=== PATIENT | female | born 1970 | race Two or more races ===

== ENCOUNTER 2017-01-09 19:10 | Emergency (ER) | payer OTHER ==
[~2017-01-09] VITALS: Ht 170.2 cm; Wt 70.3 kg
[2017-01-09] MEDS ORDERED: ASPIRIN 325 MG TABLET PO ONE (20:00)
[2017-01-09 20:01] LABS: BASOPHILS % (AUTO) 0.6 % (0.0-2.0); RED BLOOD CELL COUNT(AUTO) 3.92 MIL/uL (4.0-5.2)
[2017-01-09 20:05] LABS: EOSINOPHILS # (AUTO) 0.1 /CMM (0.0-0.7); EOSINOPHILS % (AUTO) 1.4 % (0.0-6.0); HEMATOCRIT 36 % (33-45); HEMOGLOBIN 12.3 g/dL (11.5-14.8); LYMPHOCYTES % (AUTO) 27.8 % (20.0-44.0); MEAN CORPUSCULAR HEMOGLOBIN 31 PG (26.0-33.0); MEAN CORPUSCULAR HGB CONC 35 g/dl (31.0-36.0); MEAN CORPUSCULAR VOLUME 91 fL (82-100); MONOCYTES # (AUTO) 0.4 /CMM (0.1-1.30); MONOCYTES % (AUTO) 5.6 % (2.0-12.0); NEUTROPHILS # (AUTO) 4.8 /CMM (1.8-8.9); NEUTROPHILS % (AUTO) 64.6 % (43.0-81.0); PLATELET COUNT (AUTO) 161 /CMM (150-450); RDW COEFFICIENT OF VARIATION 12.3 (11.5-15.0); WHITE BLOOD COUNT (AUTO) 7.4 K/uL (4.3-11.0)
[2017-01-09 20:15] LABS: CALCIUM, SERUM 8.7 mg/dL (8.5-10.1); CARBON DIOXIDE 29 mmol/L (21-32); CHLORIDE 105 mmol/L (98-107); CREATININE 0.6 mg/dL (0.6-1.3); GFR 108 mL/min (>60); GLUCOSE 93 mg/dL (74-106); POTASSIUM 3.6 mmol/L (3.5-5.1); SODIUM SERUM 139 mmol/L (136-145); UREA NITROGEN, BLOOD 17 mg/dL (7-18)
[2017-01-09 20:18] LABS: INR 1.01 (0.87-1.13); PROTHROMBIN TIME 10.5 SECS (9.5-12.7)
[2017-01-09 20:24] LABS: TROPONIN I < 0.017 ng/mL (0.00-0.056)
[2017-01-09] MEDS ORDERED: ASPIRIN 325 MG TABLET ONE ×2 (20:32)
--- NOTE | 2017-01-09 20:35 | NUR ---
PT REPORT RECIEVD FROM JAMES BERNAL
--- NOTE | 2017-01-09 20:40 | NUR ---
PT A/OX4 BREATHING EFFORTLESSLY ON ROOM AIR, PT C/O CP X 4 DAYS. PT ON MONITOR, IN GOWN, PT FAMILY AT BEDSIDE, PT DENIES SOB OR DIFFICULTY BREATHING, MD MADE AWARE WILL CONTINUE TO MONITOR.
[2017-01-09 21:30] VITALS: BP 124/88
== END 2017-01-09 21:31 | disposition home or self-care (01) ==
LOC: ER 19:11
DX: M94.0 Chondrocostal junction syndrome [Tietze] (principal); R07.9 Chest pain, unspecified; F12.90 Cannabis use, unspecified, uncomplicated
CPT/HCPCS: 36415; 71010; 80048; 84484; 85025; 85730; 93005; 99285; A4606; A6403; Z7610

== ENCOUNTER 2017-05-27 14:00 | Emergency (ER) | payer SELFPAY ==
[~2017-05-27] VITALS: Ht 167.6 cm; Wt 71.2 kg
[2017-05-27 14:00] VITALS: BP 114/70
[2017-05-27] MEDS ORDERED: LORATADINE 10 MG TABLET PO SCH (14:30)
[2017-05-27] MEDS ORDERED: predniSONE 10 MG TABLET PO ONE (14:30)
[2017-05-27] MEDS ORDERED: FAMOTIDINE (20 MG) 20 MG TABLET PO ONE (14:30)
[2017-05-27] MEDS ORDERED: FAMOTIDINE (20 MG) 20 MG TABLET ONE (14:36)
[2017-05-27] MEDS ORDERED: predniSONE 20 MG TABLET ONE (14:37)
--- NOTE | 2017-05-27 14:46 | NUR ---
Medicated as ordered,Patient discharged to home in stable condition. Written and verbal after care instructions given. Patient verbalizes understanding of instruction.
== END 2017-05-27 14:48 | disposition home or self-care (01) ==
LOC: ER 14:05
DX: L50.9 Urticaria, unspecified (principal)
CPT/HCPCS: 99284; A4606; J7512; Z7610

== ENCOUNTER 2019-01-24 17:52 | Emergency (ER) | payer OTHER ==
[~2019-01-24] VITALS: Ht 167.6 cm; Wt 70.3 kg
--- NOTE | 2019-01-24 18:25 | NUR ---
pt came from home c/o cough, congestion and midsternal chest pain, a/o x4, SR, 100% on RA, BP stable, some minor midsternal chest pain, seen by the doctor.
[2019-01-24 19:17] VITALS: BP 125/84
== END 2019-01-24 19:18 | disposition home or self-care (01) ==
LOC: ER 17:57
DX: J40 Bronchitis, not specified as acute or chronic (principal)
CPT/HCPCS: 71045-TC